=== PATIENT | female | born 1970 | race Two or more races ===

== ENCOUNTER 2023-05-28 17:12 | Emergency (ER) | payer OTHER, SELFPAY ==
--- NOTE | ~2023-05-28 | XR_ITS ---
EXAMINATION: XR CHEST CLINICAL INFORMATION: Chest tightness COMPARISON: None available. TECHNIQUE: 2 views of the chest were obtained. FINDINGS: No significant abnormality is noted involving the heart, lungs, mediastinum, bony thorax or soft tissues. XR/XR chest 2V IMPRESSION: Unremarkable examination.
--- NOTE | 2023-05-28 17:15 | ECG_ITS ---
Test Reason : CHEST PAIN Blood Pressure : / mmHG Vent. Rate : 061 BPM Atrial Rate : 061 BPM P-R Int : 140 ms QRS Dur : 088 ms QT Int : 428 ms P-R-T Axes : 044 -03 037 degrees QTc Int : 430 ms Normal sinus rhythm Normal ECG No previous ECGs available Referred By: Shayy Martinez Electronically Signed By:DEANA HURT MD
[2023-05-28 17:44] LABS: MANUAL DIFF FLAG NO
[2023-05-28 17:46] LABS: Basophils Percent Auto 0.5 % (0-2); Eosinophils Absolute Auto 0.2 X10*3/uL (0.0-0.4); Eosinophils Percent Auto 2.8 % (0-4); Hematocrit 43.3 % (37.0-47.0); Hemoglobin 13.8 g/dl (12.0-16.0); Imm Gran Abs Auto 0.02 X10*3/uL (0.00-0.03); Imm Gran Pct Auto 0.2 % (0.0-0.4); Lymphocytes Percent Auto 23.4 % (20-40); Mean Corpuscular HGB Conc 31.9 g/dl (31.0-35.0); Mean Corpuscular Hemoglobin 27.4 pg (27.0-33.0); Mean Corpuscular Volume 85.9 fL (80.0-98.0); Mean Platelet Volume 9.9 fL (9.4-12.3); Monocytes Absolute Auto 0.5 X10*3/uL (0.1-1.2); Monocytes Percent Auto 5.3 % (2-11); Neutrophils Absolute Auto 5.9 x10*3/uL (2.0-8.3); Neutrophils Percent Auto 67.8 % (45-73); Platelet Count 288 X10*3/uL (160-400); Red Blood Count 5.04 X10*6/uL (4.20-5.50); Red Cell Distribution Width 12.9 % (11.0-16.0); White Blood Count 8.7 X10*3/uL (4.8-10.8)
[2023-05-28 17:50] VITALS: BP 143/78; PULSE 63; RESP 16; TEMP 36.4; O2SAT 98; BMI 31.8
--- NOTE | 2023-05-28 17:50 | ED_ITS ---
HPI - Chest Pain General Chief Complaint: Abdominal Pain Stated Complaint: chest pain ,abd and back pain Time Seen by Provider: 05/28/23 22:28 Source: patient Mode of arrival: ambulatory Limitations: no limitations History of Present Illness HPI narrative: Patient with history of hypertension will complaining of epigastric pain since yesterday for the chest feels tight constant does get worse when she eats nausea no vomiting no shortness of breath no black stools Related Data Previous Rx's ?Medication ?Instructions ?Recorded omeprazole 40 mg capsule,delayed 40 mg PO DAILY #30 caps 05/28/23 release sucralfate 1 gram tablet 1 g PO TID #90 tabs 05/28/23 Allergies Allergy/AdvReac Type Severity Reaction Status Date / Time No Known Allergies Allergy Verified 05/28/23 17:54 Review of Systems 2 Review of Systems: Yes all other systems are reviewed and are negative [facility] Social History Social History Advance Directives: No Advance Directives Information Provided: No Physical Exam 2 Vital Signs: Vital Signs: Last Vital Signs Temp 97.9 F 05/28/23 23:21 Pulse 56 05/28/23 23:21 Resp 16 05/28/23 23:21 BP 149/75 H 05/28/23 23:21 Pulse Ox 97 05/28/23 23:21 O2 Del Method Room Air 05/28/23 23:21 BMI result Body Mass Index 31.8 Appearance: Alert. Oriented X3. No acute distress. Eyes: No pallor or icterus ENT: Pharynx normal. Oral Mucosa moist Neck: Normal inspection. Neck supple. CVS: Normal heart rate and rhythm. Pulses normal. Respiratory: No respiratory distress. Equal air entry bilateral, no wheezing/rales/rhonchi Abdomen: Soft and epigastric tenderness no rebound tenderness or guard Bowel sounds are present, no mass palpable, no CVA tenderness Skin: Skin warm and dry. Normal skin color. Normal skin turgor. Extremities: No lower extremity edema. No calf tenderness Neuro: Oriented X 3. Course Course Course Narrative: RME:?53 yo female here for eval of intermittent chest tightness and constant upper abdominal pain and back pain that began yesterday.admits pain is not exacerbated with eating. denies fevers, cough, dyspnea, palpitations, SOB, N/V, diarrhea, constipation. denies etoh consumption. labs, ekg, cxr ordered +/- other imaging per primary provider Full HPI, ROS and PE to be performed by the primary ED provider. Medications Administered Discontinued Medications Generic Name Dose Route Start Last Admin Trade Name Silvina PRN Reason Stop Dose Admin Al Hydroxide/Mg Hydroxide 30 ml 05/28/23 22:56 05/28/23 23:20 Magnesium Hydrox/Alum Hydrox 30 Ml Oral.Susp PO 05/28/23 22:57 Not Given ONCE ONE Omeprazole 40 mg 05/28/23 22:56 05/28/23 23:20 Omeprazole 40 Mg Capsule.Dr DE LA ROSA 05/28/23 22:57 Not Given ONCE ONE Medical Decision Making Medical Decision Making MDM Narrative: Patient with gastritis lab workup negative for ACS/pancreatitis will give a trial of Prilosec and Maalox advised to follow with photo manager/PCP Differential Diagnosis Differential Diagnoses: The differential diagnosis associated with the presentation includes Acute gastritis/ACS/pancreatitis Lab Data [facility] Lab Attestation statement: I reviewed the patient's lab results. 05/28/23 17:27 05/28/23 17:27 Labs: Lab Results 05/28/23 05/28/23 Range/Units 17:27 21:43 WBC 8.7 (4.8-10.8) X10*3/uL RBC 5.04 (4.20-5.50) X10*6/uL Hgb 13.8 (12.0-16.0) g/dl Hct 43.3 (37.0-47.0) % MCV 85.9 (80.0-98.0) fL MCH 27.4 (27.0-33.0) pg MCHC 31.9 (31.0-35.0) g/dl RDW 12.9 (11.0-16.0) % Plt Count 288 (160-400) X10*3/uL MPV 9.9 (9.4-12.3) fL Immature Gran % (Auto) 0.2 (0.0-0.4) % Neut % (Auto) 67.8 (45-73) % Lymph % (Auto) 23.4 (20-40) % [place] % (Auto) 5.3 (2-11) % Eos % (Auto) 2.8 (0-4) % Baso % (Auto) 0.5 (0-2) % Lymph # (Auto) 2.0 (1.2-4.9) X10*3/uL [place] # (Auto) 0.5 (0.1-1.2) X10*3/uL Eos # (Auto) 0.2 (0.0-0.4) X10*3/uL Baso # (Auto) 0.0 (0.0-0.2) X10*3/uL Abs Immat Gran (auto) 0.02 (0.00-0.03) X10*3/uL Absolute Neuts (auto) 5.9 (2.0-8.3) x10*3/uL Absolute Nucleated RBC 0.000 (0.0-0.012) X10*3/uL Nucleated RBC % (auto) 0.0 (0.0-0.2) /100WBC Sodium 140 (135-145) mmol/L Potassium 4.2 (3.3-5.1) mmol/L Chloride 102 (96-108) mmol/L Carbon Dioxide 29 (22-29) mmol/L Anion Gap 13 (12-20) BUN 13 (9-16) mg/dL Creatinine 0.67 (0.5-1.4) mg/dL Estim Creat Clear Calc 85.1 Estimated GFR > 60 Random Glucose 125 H (60-115) mg/dL Calcium 10.2 (8.4-10.2) mg/dL Magnesium 2.3 (1.6-2.6) mg/dL Total Bilirubin 0.3 (0.0-1.0) mg/dL AST 21 (5-31) U/L ALT 23 (0-31) U/L Alkaline Phosphatase 115 (39-117) U/L Troponin I High Sens < 2.7 (<3.5-17.0) ng/L Total Protein 8.6 H (6.5-8.0) g/dL Albumin 4.7 (3.5-5.0) g/dL Lipase 77 (8-78) U/L Urine Color Yellow Urine Appearance Clear Urine pH 6.0 (5.0-9.0) Ur Specific [place] 1.015 (1.005-1.025) Urine Protein Negative (Neg-Trace) mg/dL Urine Glucose (UA) Negative (Negative) mg/dL Urine Ketones Negative (Negative) mg/dL Urine Blood Negative (Negative) Urine Nitrite Negative (Negative) Ur Leukocyte Esterase Small (1+) H (Negative) Urine RBC 0-2 (0-2) /HPF Urine WBC 0-5 (0-5) /HPF Ur Squamous Epith Cells 0-2 (0-2) /HPF Urine Bacteria None Seen (None Seen) Hyaline Casts 0-2 (0-2) /LPF Independent Interpretation I performed an independent interpretation of an: EKG Interpretation: Normal sinus rhythm heart rate 61 beats per minute normal interval axis no acute ST-T changes no acute ischemia Discharge Plan Discharge Clinical Impression: Acute gastritis, Chest pain Patient Disposition: Home, Self-Care Instructions: Chest Pain (ED), Gastritis (ED) Additional Instructions: Avoid fried food Medication as prescribed Follow with PCP/photo manager for further evaluation Prescriptions: New omeprazole 40 mg capsule,delayed release(DR/EC) 40 mg PO DAILY Qty: 30 0RF sucralfate 1 gram tablet 1 g PO TID Qty: 90 0RF Interventions: ED Discharge Assessment Last Done: 05/28/23 23:21 Discharge Date/Time: 05/28/23 23:21 Print Language: Chadian
[2023-05-28 18:01] LABS: Alanine Aminotransferase 23 U/L (0-31); Albumin Level 4.7 g/dL (3.5-5.0); Alkaline Phosphatase 115 U/L (39-117); Anion Gap 13 (12-20); Aspartate Amino Transferase 21 U/L (5-31); Bilirubin Total 0.3 mg/dL (0.0-1.0); Blood Urea Nitrogen 13 mg/dL (9-16); Calcium 10.2 mg/dL (8.4-10.2); Carbon Dioxide 29 mmol/L (22-29); Chloride 102 mmol/L (96-108); Creatinine Clr Calc Pharmacy 85.1; Estimated Glomerular Filt Rate > 60; Glucose Random 125 mg/dL (60-115); Lipase 77 U/L (8-78); Magnesium 2.3 mg/dL (1.6-2.6); Potassium 4.2 mmol/L (3.3-5.1); Sodium 140 mmol/L (135-145); Total Protein 8.6 g/dL (6.5-8.0)
[2023-05-28 18:12] LABS: Troponin-I High Sensitivity < 2.7 ng/L (<3.5-17.0)
[2023-05-28 21:41] VITALS: BP 149/75; PULSE 56; RESP 16; TEMP 36.6; O2SAT 97
--- NOTE | 2023-05-28 21:44 | MHC.EDTECH ---
THIS PCT JUST ASSUMED CARE OF PATIENT ,VITALS TAKEN AND URINE SAMPLE COLLECTED AND SENT TO LAB .
[2023-05-28 21:51] LABS: Appearance Urine Clear; Color Urine Yellow; Glucose Urine UA Negative (Negative); Leukocyte Esterase Urine Small (1+) (Negative); Nitrite Urine Negative (Negative); Specific Gravity - Urine 1.015 (1.005-1.025); UMIC TRIGGER UACC YES; Urine Blood Negative (Negative); Urine Ketones Negative (Negative); Urine Protein Negative (Neg-Trace)
[2023-05-28 21:59] LABS: Bacteria Urine None Seen (None Seen); Hyaline Casts Urine 0-2 /LPF (0-2); RBC Urine 0-2 /HPF (0-2); Squamous Epithelial Cell Urine 0-2 /HPF (0-2); UACC Culture Trigger YES; WBC Urine 0-5 /HPF (0-5)
--- NOTE | 2023-05-28 23:20 | PC.NURSE ---
pt refused meds and vitals and left without paperwork. axox4. nad. resp even and unlabored.
[2023-05-28 23:21] VITALS: BP 149/75; PULSE 56; RESP 16; TEMP 36.6; O2SAT 97
== END 2023-05-28 23:21 | disposition home or self-care (01) ==
PROVIDERS: Physician Assistant Medical; Emergency Provider Internal Medicine; PCP Nurse Practitioner Family
DX: K29.70 Gastritis, unspecified, without bleeding (principal); R07.89 Other chest pain; M54.50 Low back pain, unspecified; R10.13 Epigastric pain; Z79.899 Other long term (current) drug therapy
CPT/HCPCS: 36415; 71046; 80053; 81001; 83690; 83735; 84484; 85025; 87086; 87147; 93005; 99283; 99284

== ENCOUNTER → 2023-05-28 17:15 | Outpatient (BNV) | payer OTHER, SELFPAY | PROVIDERS: Emergency Provider Internal Medicine; PCP Nurse Practitioner Family; Visit Provider Internal Medicine Cardiovascular Disease | DX: R07.9 Chest pain, unspecified (principal) | CPT/HCPCS: 93010 ==

== ENCOUNTER 2024-01-16 12:22 | Emergency (ER) | payer OTHER, SELFPAY ==
--- NOTE | ~2024-01-16 | CT_ITS ---
EXAMINATION: CT HEAD WITHOUT CONTRAST CLINICAL INFORMATION: Headache. COMPARISON: None available. TECHNIQUE: Contiguous axial imaging was performed from the skull base to vertex without intravenous administration of contrast. This CT examination was performed using dose optimization techniques as appropriate, variously including the following: *Automated exposure control *Adjustment of mA and/or kV according to patient size (this includes techniques or standardized protocols for targeted exams where dose is matched to indication/reason for exam; i.e. extremities or head) *Use of iterative reconstruction technique DLP: 611 mGy-cm FINDINGS: No acute intracranial hemorrhage. No evidence of acute/subacute cerebral or cerebellar infarction. There is no midline shift or mass effect. There is no extra-axial fluid collection. The ventricles are normal in size. The orbits are symmetric and within normal limits. The paranasal sinuses and mastoid air cells are clear. CT/CT head/brain wo IV con IMPRESSION: No acute intracranial pathology. Electronically signed by: Ted Lambert DO 01/16/2024 03:16 PM [facility]
--- NOTE | ~2024-01-16 | XR_ITS ---
EXAMINATION: XR CHEST CLINICAL INFORMATION: chest pain COMPARISON: Chest x-ray May 28, 2023 TECHNIQUE: 2 views of the chest were obtained. FINDINGS: Cardiac silhouette is normal in size. The lungs are well aerated. There is no lobar consolidation. No pleural effusion or pneumothorax. No acute osseous abnormality. XR/XR chest 2V IMPRESSION: No acute pulmonary pathology. Electronically signed by: Adelfo Gardner MD 01/16/2024 03:56 PM [facility]
--- NOTE | 2024-01-16 12:31 | ED_ITS ---
HPI - Headache General Chief Complaint: Headache Stated Complaint: migraine Time Seen by Provider: 01/16/24 12:45 Source: patient and family Mode of arrival: ambulatory Limitations: no limitations History of Present Illness ED Provider: Deirdre Avitia APRN HPI Narrative: 53 yo female with history of migraines, HTN here with complaints of generalized BUI x 2 weeks with dizziness, photophobia, phonophobia despite taking naproxen and Imitrex. Patient reports that she has had an MRI of her brain about a year ago when she initially started having headaches which was normal. She does not see a neurologist. She does feel that this is similar to her previous migraines however they do not normally last this long and resolve with naproxen and or Imitrex. She denies any associated fevers, chills, neck pain. Not affected with position changes. Also complaining of central chest achiness which is constant. Patient reports she did have COVID about a month ago and had a cough with that. About 2 weeks ago she was having some left-sided chest discomfort and was diagnosed with chest wall strain and given a prescription for naproxen. It did seem to resolve but today she started to have some central chest discomfort with no associated diaphoresis, shortness of breath. She did have 1 episode of vomiting. Chest pain is constant. It is not worsened with exertion. She currently has no cough or fever or shortness of breath. She denies any leg swelling or leg pain. No recent surgeries. No recent hospitalizations. No recent travel. No history of oral hormone or estrogen use. Related Data Previous Rx's ?Medication ?Instructions ?Recorded omeprazole 40 mg capsule,delayed 40 mg PO DAILY #30 caps 05/28/23 release sucralfate 1 gram tablet 1 g PO TID #90 tabs 05/28/23 [id number]-pmaponfchdltq-pzjqelqa 1 cap PO Q8H PRN pain #15 caps 01/16/24 50 mg-300 mg-40 mg capsule (Fioricet) Allergies Allergy/AdvReac Type Severity Reaction Status Date / Time minocycline Allergy Hives Verified 01/16/24 12:35 Sulfa (Sulfonamide Allergy Hives Verified 01/16/24 12:35 Antibiotics) Review of Systems 2 Review of Systems: Yes all other systems are reviewed and are negative Constitutional: Constitutional: Reports no additional constitutional complaints, Denies body ache(s), Denies chills, Denies fever(s), Reports headache(s) and Denies weakness Eyes: Eyes: Reports no additional eye complaints, Denies change in vision and Reports photophobia ENT: Reports system reviewed and no additional complaints, except as documented, Reports dizziness, Reports headache(s), Denies nasal congestion, Denies nasal discharge and Denies neck pain Cardiovascular: Cardiovascular: Reports no additional cardiovascular complaints, Reports chest pain, Denies leg edema and Denies dyspnea Respiratory: Respiratory: Reports no additional respiratory complaints, Denies cough and Denies dyspnea Gastrointestinal: Gastrointestinal: Reports no additional gastrointestinal complaints, Denies abdominal pain, Denies diarrhea, Reports nausea and Reports vomiting Genitourinary: Genitourinary: Reports no additional female genitourinary complaints and Denies urinary incontinence Musculoskeletal: Musculoskeletal: Reports no additional musculoskeletal complaints, Denies back pain, Denies arthralgias, Denies joint swelling, Denies neck pain, Denies numbness and Denies tingling Integumentary/Breasts: Skin/Breast: Reports system reviewed and no additional complaints, except as docu and Denies rash Neurologic: Reports system reviewed and no additional complaints, except as documented, Denies Abnormal speech present, Reports dizziness, Reports headache(s), Denies numbness, Denies tingling and Denies weakness [facility] Past Medical History Attestation statement: The following information was validated with the patient. Source: old records reviewed and nursing notes reviewed Social History Social History Advance Directives: No Advance Directives Information Provided: No Do you have a plan to hurt others: No Plan Physical Exam 2 Vital Signs: Vital Signs: Last Vital Signs Temp 98.2 F 01/16/24 12:32 Pulse 70 01/16/24 14:57 Resp 13 01/16/24 14:57 BP 119/73 01/16/24 14:57 Pulse Ox 97 01/16/24 14:57 O2 Del Method Room Air 01/16/24 14:57 BMI result Body Mass Index 29.7 Const: General: cooperative, healthy appearing, comfortable and no acute distress Orientation/consciousness: patient oriented x3 Limitations: no limitations HEENT: Head: Yes normal to inspection and No Temporal artery tenderness present Ears: hearing grossly normal bilaterally and TM's normal bilaterally General nose exam: Normal external nose present Face and sinus: Yes normal facial exam Mouth: Normal oral and palatal mucosa present Throat: Yes posterior oropharynx normal Eyes: General: appearance normal, both eyes and all related structures P upils: Equal, round and reactive pupils present Direct Ophthalmoscopy: p hotophobia Neck: Neck: Yes normal visual inspection, Yes full ROM, Yes no lymphadenopathy and Yes no meningeal signs Chest: Chest palpation & inspection: normal inspection of the chest Resp: Effort & Inspection: normal respiratory effort Auscultation: clear to auscultation bilaterally Cardio: Rate: regular rate Rhythm: regular rhythm Peripheral pulses: P eripheral pulses 2+ throughout GI: Inspection: Yes normal to inspection Palpation (GI): Soft to palpation and nontender Auscultation: normal bowel sounds Back/Spine/Pelvis: Thoracic/Lumbar Spine: thoracic and lumbar spine normal to inspection Skin: General skin exam: no rashes or lesions noted Neuro: General: patient oriented x3, moves all extremities, no meningeal signs, no focal motor deficits and normal sensation to monofilament Cranial nerves: Yes CN's II-XII intact bilaterally, Yes Equal, round and reactive pupils present, Yes Bilaterally intact EOM present, Yes Nystagmus not present, Yes Normal facial strength present and Yes Midline tongue present Cognition (Neuro): normal cognition Speech: No Abnormal speech present Gait exam (Neuro): Normal gait present Motor exam (neuro): 5/5 motor strength present throughout Sensory Exam: Normal double simultaneous stimulation for sensation Extrem: General: Yes normal to inspection, Yes no pedal edema and Yes no calf tenderness Course Course Course Narrative: This is a Rapid Medical Exam performed in triage by Neena Dumont PA-C. Full HPI, ROS and PE to be performed by primary ED provider. 53yo F presenting to the ED c/o migraine BUI x2 weeks w/assoc nausea, vomiting & lightheadedness. Saw PCP has been taking Naproxen, Imitrex & Fioricet w/o relief. Also reports chest tightness since yesterday after starting Rx meds for BUI. Admits to hx migraines but hasn't had one in months. PE: ambulating w/steady gait. no focal deficits Plan: viral testing, labs, pain control Reevaluation(s) Reevaluation #1: 1520-Ct head unremarkable. CXR normal. Labs are negative, EKG non ischemic. Patient reports continued headache although improving after reglan, benadryl, toradol and NS. Will give additional 1 L NS, PO fiorcet and re-assess. Reevaluation #2: 1700-patient is pain-free. Reviewed findings with patient. Reviewed worrisome signs and symptoms of when to return to the emergency room. Comfortable plan for discharge home Medications Administered Discontinued Medications Generic Name Dose Route Start Last Admin Trade Name Silvina PRN Reason Stop Dose Admin Acetaminophen/Butalbital/Caffeine 2 tab 01/16/24 15:05 01/16/24 15:19 Butalb/Acetamin/Caff 50/325/40 Tablet PO 01/16/24 15:06 2 tab ONCE ONE Administration Diphenhydramine HCl 25 mg 01/16/24 13:01 01/16/24 13:22 Diphenhydramine Hcl 50 Mg/Ml Vial IVPUSH 01/16/24 13:02 25 mg ONCE ONE Administration Sodium Chloride 1,000 mls @ 999 mls/hr 01/16/24 13:01 01/16/24 14:56 Ns IV 01/16/24 14:01 Infused .Q1H1M STA Infusion Sodium Chloride 1,000 mls @ 999 mls/hr 01/16/24 15:05 01/16/24 16:34 Ns IV 01/16/24 16:05 Infused .Q1H1M STA Infusion Ketorolac Tromethamine 15 mg 01/16/24 13:01 01/16/24 13:21 Ketorolac Tromethamine 15 Mg/Ml Vial IVPUSH 01/16/24 13:02 15 mg ONCE ONE Administration Metoclopramide HCl 10 mg 01/16/24 13:01 01/16/24 13:22 Metoclopramide Hcl 10 Mg/2 Ml Vial IVPUSH 01/16/24 13:02 10 mg ONCE ONE Administration Medical Decision Making Medical Decision Making MDM Narrative: 53-year-old female with history of migraines who presents with persistent generalized headache for the last 2 weeks with photophobia, phonophobia, dizziness which feels typical of her usual migraines although this is more persistent and unrelieved with Imitrex and naproxen at home. She has a normal neuro exam with no focal tenderness. No meningeal signs. No lymphadenopathy. No fever. Gradual onset. No change with position, no temporal artery tenderness. Will obtain CT head. Will give Toradol, Reglan, Benadryl and IV fluids. Also complaining of nonexertional chest pain which is not typical for ACS. Will obtain EKG, chest x-ray and troponin Differential Diagnosis Differential Diagnoses: The differential diagnosis associated with the presentation includes Migraine Low suspicion for pseudotumor cerebri, meningitis, temporal arteritis, space- occupying lesion, ICH Chest pain-ACS (less likely with negative troponin, nonischemic EKG and atypical symptoms), PE(less likely with no hypoxia, no tachypnea, no clinical findings concerning for DVT, no risk factors for same), aortic dissection-less likely with gradual onset of symptoms Admission/Observation Consideration of admission/observation: Escalation of care including admission/observation considered See course of care Lab Data MDM Lab Attestation statement: I reviewed the patient's lab results. 01/16/24 13:17 01/16/24 13:17 Labs: Lab Results 01/16/24 Range/Units 13:17 WBC 8.4 (4.8-10.8) X10*3/uL RBC 4.39 (4.20-5.50) X10*6/uL Hgb 12.3 (12.0-16.0) g/dl Hct 37.5 (37.0-47.0) % MCV 85.4 (80.0-98.0) fL MCH 28.0 (27.0-33.0) pg MCHC 32.8 (31.0-35.0) g/dl RDW 13.5 (11.0-16.0) % Plt Count 218 (160-400) X10*3/uL MPV 9.7 (9.4-12.3) fL Immature Gran % (Auto) 0.6 H (0.0-0.4) % Neut % (Auto) 85.0 H (45-73) % Lymph % (Auto) 9.7 L (20-40) % [place] % (Auto) 3.9 (2-11) % Eos % (Auto) 0.4 (0-4) % Baso % (Auto) 0.4 (0-2) % Lymph # (Auto) 0.8 L (1.2-4.9) X10*3/uL [place] # (Auto) 0.3 (0.1-1.2) X10*3/uL Eos # (Auto) 0.0 (0.0-0.4) X10*3/uL Baso # (Auto) 0.0 (0.0-0.2) X10*3/uL Abs Immat Gran (auto) 0.05 H (0.00-0.03) X10*3/uL Absolute Neuts (auto) 7.2 (2.0-8.3) x10*3/uL Absolute Nucleated RBC 0.000 (0.0-0.012) X10*3/uL Nucleated RBC % (auto) 0.0 (0.0-0.2) /100WBC Sodium 137 (135-145) mmol/L Potassium 4.3 (3.3-5.1) mmol/L Chloride 101 (96-108) mmol/L Carbon Dioxide 26 (22-29) mmol/L Anion Gap 14 (12-20) BUN 15 (9-16) mg/dL Creatinine 0.74 (0.5-1.4) mg/dL Estim Creat Clear Calc 74.4 Estimated GFR > 60 Random Glucose 141 H (60-115) mg/dL Calcium 9.7 (8.4-10.2) mg/dL Magnesium 2.0 (1.6-2.6) mg/dL Total Bilirubin 0.4 (0.0-1.0) mg/dL Direct Bilirubin 0.1 (0.0-0.5) mg/dL AST 23 (5-31) U/L ALT 25 (0-31) U/L Alkaline Phosphatase 93 (39-117) U/L Troponin I High Sens < 2.7 (<3.5-17.0) ng/L Total Protein 7.6 (6.5-8.0) g/dL Albumin 4.4 (3.5-5.0) g/dL Influenza Type A (PCR) NEGATIVE (Negative) Influenza Type B (PCR) NEGATIVE (Negative) RSV RNA Qual (PCR) NEGATIVE (Negative) SARS-CoV-2 RNA (RT-PCR) NEGATIVE (Negative) Independent Interpretation I performed an independent interpretation of an: EKG, Plain X-Ray and CT Scan Interpretation: I independently viewed the EKG which shows normal sinus rhythm with a rate of 73, normal SD, normal QRS, normal QT I independently viewed the CT scan of the chest x-ray and agree with the radiology report Radiology Impression Discussion of test interpretation with radiology: I have reviewed the radiologist's reading. Radiologist Impression: [address] [address] [address] Scan Report Signed Patient: Tiny Coello MR#: [id number] : 1970 Acct:[id number] Age/Sex: 53 / F ADM Date: 01/16/24 Loc: HO.ED Attending Dr: Ordering Physician: Deirdre Avitia NP Date of Service: 01/16/24 Procedure(s): CT head/brain wo IV con Accession Number(s): [id number] cc: KAMRAN PRYOR LEAD WEB DEVELOPER; Deirdre Avitia NP~ EXAMINATION: CT HEAD WITHOUT CONTRAST CLINICAL INFORMATION: Headache. COMPARISON: None available. TECHNIQUE: Contiguous axial imaging was performed from the skull base to vertex without intravenous administration of contrast. This CT examination was performed using dose optimization techniques as appropriate, variously including the following: *Automated exposure control *Adjustment of mA and/or kV according to patient size (this includes techniques or standardized protocols for targeted exams where dose is matched to indication/reason for exam; i.e. extremities or head) *Use of iterative reconstruction technique DLP: 611 mGy-cm FINDINGS: No acute intracranial hemorrhage. No evidence of acute/subacute cerebral or cerebellar infarction. There is no midline shift or mass effect. There is no extra-axial fluid collection. The ventricles are normal in size. The orbits are symmetric and within normal limits. The paranasal sinuses and mastoid air cells are clear. CT/CT head/brain wo IV con IMPRESSION: No acute intracranial pathology. [address] [address] XRay Report? Signed Patient: Tiny Coello MR#: [id number] : 1970 Acct:[id number] Age/Sex: 53 / F ADM Date: 01/16/24 Loc: HO.ED Attending Dr:? Ordering Physician: Deirdre Avitia NP Date of Service: 11/23/24 Procedure(s): XR chest 2V Accession Number(s): [id number] cc: KAMRAN PRYOR LEAD WEB DEVELOPER; Deirdre Avitia NP~ EXAMINATION: XR CHEST CLINICAL INFORMATION:? chest pain COMPARISON:? Chest x-ray May 28, 2023 TECHNIQUE:? 2 views of the chest were obtained. FINDINGS: Cardiac silhouette is normal in size. The lungs are well aerated. There? is no lobar consolidation. No pleural effusion or pneumothorax. No? acute osseous abnormality. XR/XR chest 2V IMPRESSION: No acute pulmonary pathology. ? Independent Historian Clinical information obtained from an independent historian. History obtained from or confirmed by: Spouse Tests considered The following testing was considered but not selected: See course of care Prescription Management I considered prescription management with: Pain Medication Discharge Plan Discharge Clinical Impression: Migraine, Chest pain Patient Disposition: Home, Self-Care Instructions: Chest Pain (ED), Migraine Headache (ED) Additional Instructions: Your blood work is re-assuring Your CT scan of your head is normal Your chest x-ray is normal Your EKG is normal Follow-up with your PCP for any continued symptoms Prescriptions: New yuphvecmvu-ssludqwcvdaja-hlnx [Fioricet] 50-300-40 mg capsule 1 cap PO Q8H PRN (Reason: pain) Qty: 15 0RF No Action omeprazole 40 mg capsule,delayed release(DR/EC) 40 mg PO DAILY Qty: 30 0RF sucralfate 1 gram tablet 1 g PO TID Qty: 90 0RF Referrals: Kamran Pryor NP [Primary Care Provider] - 1 week Print Language: Latvian
[2024-01-16 12:32] VITALS: BP 140/83; PULSE 74; RESP 18; TEMP 36.8; O2SAT 100; BMI 29.7
--- NOTE | 2024-01-16 12:35 | ECG_ITS ---
Test Reason : headache Blood Pressure : / mmHG Vent. Rate : 073 BPM Atrial Rate : 073 BPM P-R Int : 132 ms QRS Dur : 104 ms QT Int : 392 ms P-R-T Axes : 050 006 015 degrees QTc Int : 431 ms Poor data quality, interpretation may be adversely affected Normal sinus rhythm Normal ECG When compared with ECG of 28-MAY-2023 17:18, No significant change was found Referred By: Neena Dumont Electronically Signed By:DEANA HURT MD
[2024-01-16] MEDS: 0.9 % Sodium Chloride 1,000 ML 999 ML IV ×2 (13:18→15:19)
[2024-01-16 13:20] LABS: MANUAL DIFF FLAG NO
[2024-01-16] MEDS: Ketorolac Tromethamine 15 MG/ML VIAL IVPUSH (13:21)
[2024-01-16 13:22] LABS: Basophils Percent Auto 0.4 % (0-2); Eosinophils Percent Auto 0.4 % (0-4); Hematocrit 37.5 % (37.0-47.0); Hemoglobin 12.3 g/dl (12.0-16.0); Imm Gran Abs Auto 0.05 X10*3/uL (0.00-0.03); Imm Gran Pct Auto 0.6 % (0.0-0.4); Lymphocytes Absolute Auto 0.8 X10*3/uL (1.2-4.9); Lymphocytes Percent Auto 9.7 % (20-40); Mean Corpuscular HGB Conc 32.8 g/dl (31.0-35.0); Mean Corpuscular Volume 85.4 fL (80.0-98.0); Mean Platelet Volume 9.7 fL (9.4-12.3); Monocytes Absolute Auto 0.3 X10*3/uL (0.1-1.2); Monocytes Percent Auto 3.9 % (2-11); Neutrophils Absolute Auto 7.2 x10*3/uL (2.0-8.3); Platelet Count 218 X10*3/uL (160-400); Red Blood Count 4.39 X10*6/uL (4.20-5.50); Red Cell Distribution Width 13.5 % (11.0-16.0); White Blood Count 8.4 X10*3/uL (4.8-10.8)
[2024-01-16] MEDS: Metoclopramide HCl 10 MG/2 ML VIAL IVPUSH (13:22)
[2024-01-16] MEDS: diphenhydrAMINE HCL 50 MG/ML VIAL 25 MG IVPUSH (13:22)
[2024-01-16 13:35] LABS: Alanine Aminotransferase 25 U/L (0-31); Albumin Level 4.4 g/dL (3.5-5.0); Alkaline Phosphatase 93 U/L (39-117); Anion Gap 14 (12-20); Aspartate Amino Transferase 23 U/L (5-31); Bilirubin Direct 0.1 mg/dL (0.0-0.5); Bilirubin Total 0.4 mg/dL (0.0-1.0); Blood Urea Nitrogen 15 mg/dL (9-16); Calcium 9.7 mg/dL (8.4-10.2); Carbon Dioxide 26 mmol/L (22-29); Chloride 101 mmol/L (96-108); Creatinine Clr Calc Pharmacy 74.4; Estimated Glomerular Filt Rate > 60; Glucose Random 141 mg/dL (60-115); Potassium 4.3 mmol/L (3.3-5.1); Sodium 137 mmol/L (135-145); Total Protein 7.6 g/dL (6.5-8.0)
[2024-01-16 13:50] LABS: Troponin-I High Sensitivity < 2.7 ng/L (<3.5-17.0)
[2024-01-16 14:00] LABS: Influenza A PCR NEGATIVE (Negative); Influenza B PCR NEGATIVE (Negative); Resp Syncy Virus RNA Qual PCR NEGATIVE (Negative); SARS COV2 PCR INHOUSE NEGATIVE (Negative)
[2024-01-16 14:57] VITALS: BP 119/73; PULSE 70; RESP 13; O2SAT 97
[2024-01-16] MEDS: Butalb/Acetamin/Caff 50/325/40 TABLET 2 TAB PO (15:19)
[2024-01-16 17:16] VITALS: BP 122/66; PULSE 60; RESP 13; TEMP 36.7; O2SAT 99
[2024-01-16 17:25] VITALS: BP 122/66; PULSE 60; RESP 13; TEMP 36.7; O2SAT 99
--- NOTE | 2024-01-16 17:25 | PC.NURSE ---
pt states she has no pain, 0 on pain scale
== END 2024-01-16 17:48 | disposition home or self-care (01) ==
PROVIDERS: Physician Assistant; Emergency Provider Emergency Medicine; PCP Nurse Practitioner Family
DX: G43.909 Migraine, unspecified, not intractable, without status migrainosus (principal); R07.9 Chest pain, unspecified
CPT/HCPCS: 0241U; 36415; 70450; 71046; 80048; 80076; 83735; 84484; 85025; 93005; 96361; 96374; 96375; 99284; J1200; J1885; J2765

== ENCOUNTER → 2024-01-16 12:35 | Outpatient (BNV) | payer OTHER, SELFPAY | PROVIDERS: Emergency Provider Emergency Medicine; PCP Nurse Practitioner Family; Visit Provider Internal Medicine Cardiovascular Disease | DX: R51.9 Headache, unspecified (principal) | CPT/HCPCS: 93010 ==

== ENCOUNTER 2024-11-28 16:55 | Emergency (ER) | payer OTHER, SELFPAY ==
--- NOTE | ~2024-11-28 | CT_ITS ---
CLINICAL HISTORY: bilat quad. pain, rectal bleedin CT abdomen and pelvis with contrast Comparison: None provided Findings: No consolidation or effusion. Unremarkable gallbladder and solid organs. No urolithiasis. Moderate stool burden. No bowel obstruction, pneumatosis or pneumoperitoneum. Pelvic contents unremarkable. Normal appendix. No acute fracture. IMPRESSION: 1. No acute intraabdominal or pelvic pathology. This document has been electronically signed by: Brenden Tariq MD on 11/28/2024 23:27:18
[2024-11-28 17:20] VITALS: BP 153/66; PULSE 65; RESP 18; TEMP 36.6; O2SAT 98; BMI 29.0
--- NOTE | 2024-11-28 17:24 | ED.GENADULT ---
HPI - General Adult General Chief complaint: General Medical Stated complaint: bloddy stool x4 days Time Seen by Provider: 11/28/24 20:11 Source: patient Mode of arrival: ambulatory Limitations: no limitations History of Present Illness ED Provider: Dr. Radha Salmon HPI narrative: Patient comes to the emergency room complaining of 4 days of rectal bleeding. Patient states it is painless, bright red blood. Patient states it only happens when she has bowel movements. Patient denies urinary symptoms. Patient denies fever chills, denies flank pain Related Data Previous Rx's ?Medication ?Instructions ?Recorded omeprazole 40 mg capsule,delayed 40 mg PO DAILY #30 caps 05/28/23 release sucralfate 1 gram tablet 1 g PO TID #90 tabs 05/28/23 fdrglnbpzd-mklbvcukbxrxc-qnysjcmr 1 cap PO Q8H PRN pain #15 caps 01/16/24 50 mg-300 mg-40 mg capsule (Fioricet) ondansetron 4 mg disintegrating 4 mg PO Q8H PRN nausea and 01/16/24 tablet vomiting #20 tabs hydrocortisone 2.5 % topical cream 1 appl MD DAILY PRN hemorrhoids 11/29/24 with perineal applicator #30 grams (Anusol-HC) Allergies Allergy/AdvReac Type Severity Reaction Status Date / Time heparin Allergy Unknown Verified 11/28/24 17:22 minocycline Allergy Hives Verified 11/28/24 17:22 Sulfa (Sulfonamide Allergy Hives Verified 11/28/24 17:22 Antibiotics) Review of Systems Review of Systems: Constitutional : No Weight loss, No Fever, No Chills, No Night Sweats, No Fatigue, No Malaise ENT/Mouth : No Hearing loss, No Ear Pain, No Nasal Congestion, No Sinus Pain, No Hoarseness, No sore throat, No Rhinorrhea, No Swallowing Difficulty Eyes: No Eye Pain, No Swelling, No Redness, No Foreign Body, No Discharge, No Vision Changes Cardiovascular : No Chest Pain, No SOB, No Dyspnea on Exertion, No Orthopnea, No Edema, No Palpitations Respiratory : No Cough, No Sputum, No Wheezing, No Smoke Exposure, No Dyspnea Gastrointestinal : No Nausea, No Vomiting, No Diarrhea, No Constipation, No abdominal Pain, complaining of 4 days of intermittent bright red blood per rectum with bowel movements Genitourinary : no irregular bleeding, No Dysuria, No Urinary Frequency, No Hematuria, No Urinary Incontinence, No Urgency, No Flank Pain, No Urinary Flow Changes, No Hesitancy Musculoskeletal : No joint pain, No Myalgias, No Joint Swelling Skin : No Skin Lesions, No rash Neuro : No Weakness, No Numbness, No Paresthesias, No Loss of Consciousness, No Dizziness, No Headache Psych : No Anxiety/Panic, No Depression, No SI/HI/AH/VH, No Social Issues, Heme/Lymph: No Bruising, No Bleeding,No Lymphadenopathy Endocrine : No Polyuria, No Polydipsia, No Temperature Intolerance Physical Exam ED Exam Exam: Appearance: Alert. Oriented X3. No acute distress. Eyes: Pupils equal, round and reactive to light. ENT: Pharynx normal. Neck: Normal inspection. Neck supple. No lymph nodes noted. No crepitus CVS: Normal heart rate and rhythm. Pulses normal. Normal S1 and S2 Respiratory: No respiratory distress. Breath sounds normal. No Wheezing. No rales Abdomen: Soft and nontender. No rigidity. No distention. No external hemorrhoids, possible internal hemorrhoids Skin: Skin warm and dry. Normal skin color. Normal skin turgor. Extremities: No lower extremity edema. No Lacerations. No Rash Neuro: Oriented X 3. No motor deficit. No sensory deficit. Moving all extremities. No slurred speech. CN 2 through 12 grossly intact Psych: calm, cooperative, normal affect Vital Signs: Vital Signs - 24 hr 11/28/24 17:20 11/28/24 20:03 11/28/24 22:21 Temperature 98 F 98.2 F 97.9 F Pulse Rate 65 70 69 Respiratory Rate 18 14 16 Blood Pressure 153/66 H 121/70 148/80 H Pulse Oximetry 98 97 97 Oxygen Delivery Method Room Air Room Air Room Air 11/29/24 01:15 11/29/24 01:24 Temperature 97.7 F 97.7 F Pulse Rate 61 61 Respiratory Rate 14 14 Blood Pressure 124/63 124/63 Pulse Oximetry 100 100 Oxygen Delivery Method Room Air Room Air BMI result Body Mass Index 29.0 Course Course Course Narrative: RME: 54-year-old female presents to ED for will abdominal pain bowel movements with blood clots for the past 4 days. Patient was sent by primary care for re-evaluation. Vital signs are stable. Labs ordered Medications Administered Discontinued Medications Generic Name Dose Route Start Last Admin Trade Name Paragq PRN Reason Stop Dose Admin Iohexol 85 ml 11/28/24 22:32 11/28/24 22:33 Iohexol 350 Mg/Ml 100 Ml Infus..Btl IV 11/28/24 22:33 85 ml ONCE ONE Administration Medical Decision Making Medical Decision Making [facility] Narrative: I discussed the physical exam with the patient, patient likely has internal hemorrhoids. CT scan of the abdomen does not show any acute abnormality. My interpretation of labs: No significant abnormality in patient's hematology or chemistry. INR is slightly elevated 1.2, PT slightly elevated 13.3. Urinalysis negative for UTI, stool occult blood is heme negative Differential Diagnosis Differential Diagnoses: The differential diagnosis associated with the presentation includes (Internal hemorrhoids, colitis, diverticulitis) Admission/Observation Consideration of admission/observation: Escalation of care including admission/observation considered Consult Healthcare Provider Management of the patient was discussed with: Hospitalist Lab Data [facility] Lab Attestation statement: I reviewed the patient's lab results. 11/28/24 18:38 Labs: Lab Results 11/28/24 11/28/24 11/28/24 Range/Units 18:38 18:39 22:01 WBC 9.2 (4.8-10.8) X10*3/uL RBC 4.55 (4.20-5.50) X10*6/uL Hgb 12.8 (12.0-16.0) g/dl Hct 39.3 (37.0-47.0) % MCV 86.4 (80.0-98.0) fL MCH 28.1 (27.0-33.0) pg MCHC 32.6 (31.0-35.0) g/dl RDW 12.8 (11.0-16.0) % Plt Count 242 (160-400) X10*3/uL MPV 10.2 (9.4-12.3) fL Immature Gran % (Auto) 0.2 (0.0-0.4) % Neut % (Auto) 65.1 (45-73) % Lymph % (Auto) 26.7 (20-40) % [place] % (Auto) 5.3 (2-11) % Eos % (Auto) 2.3 (0-4) % Baso % (Auto) 0.4 (0-2) % Lymph # (Auto) 2.5 (1.2-4.9) X10*3/uL [place] # (Auto) 0.5 (0.1-1.2) X10*3/uL Eos # (Auto) 0.2 (0.0-0.4) X10*3/uL Baso # (Auto) 0.0 (0.0-0.2) X10*3/uL Abs Immat Gran (auto) 0.02 (0.00-0.03) X10*3/uL Absolute Neuts (auto) 6.0 (2.0-8.3) x10*3/uL Absolute Nucleated RBC 0.000 (0.0-0.012) X10*3/uL Nucleated RBC % (auto) 0.0 (0.0-0.2) /100WBC PT 13.3 H (10.9-12.4) SEC INR 1.2 H (0.9-1.1) APTT 37.4 H (26.7-34.1) SEC Beta HCG, Quant 3 mIU/mL Urine Color Yellow Urine Appearance Clear Urine pH 7.0 (5.0-9.0) Ur Specific [place] <= 1.005 (1.005-1.025) Urine Protein Negative (Neg-Trace) mg/dL Urine Glucose (UA) Negative (Negative) mg/dL Urine Ketones Negative (Negative) mg/dL Urine Blood Negative (Negative) Urine Nitrite Negative (Negative) Ur Leukocyte Esterase Trace H (Negative) Urine RBC 0-2 (0-2) /HPF Urine WBC 0-5 (0-5) /HPF Ur Squamous Epith Cells 0-2 (0-2) /HPF Urine Bacteria None Seen (None Seen) Hyaline Casts 0-2 (0-2) /LPF Stool Occult Blood NEGATIVE (NEGATIVE) Independent Interpretation I performed an independent interpretation of an: CT Scan Interpretation: No consolidation or effusion. Unremarkable gallbladder and solid organs. No urolithiasis. Moderate stool burden. No bowel obstruction, pneumatosis or pneumoperitoneum. Pelvic contents unremarkable. Normal appendix. No acute fracture. IMPRESSION: 1. No acute intraabdominal or pelvic pathology Critical Care Time Critical Care Time Critical Care Time: Yes Total Critical Care Time: 35 Attestation: I have personally provided critical care time. Time includes review of lab data, radiology results, discussion with consultants, and monitoring for potential decompensation. Intervention performed as documented. Discharge Plan Discharge Clinical Impression: Internal hemorrhoid Patient Disposition: Home, Self-Care Instructions: Hemorrhoids (ED) Additional Instructions: Please follow-up with your primary care physician tomorrow. If you have any worsening or new symptoms, please return to the emergency room or call 911 Prescriptions: New hydrocortisone [Anusol-HC] 2.5 % cream with perineal applicator 1 appl MD DAILY PRN (Reason: hemorrhoids) Qty: 30 0RF No Action [id number]-oofnnmqkikxsu-[id number] [Fioricet] 50-300-40 mg capsule 1 cap PO Q8H PRN (Reason: pain) Qty: 15 0RF ondansetron 4 mg tablet,disintegrating 4 mg PO Q8H PRN (Reason: nausea and vomiting) Qty: 20 0RF omeprazole 40 mg capsule,delayed release(DR/EC) 40 mg PO DAILY Qty: 30 0RF sucralfate 1 gram tablet 1 g PO TID Qty: 90 0RF Referrals: Syed Ding MD [Physician, General Surgery] Stand Alone Forms: Work/School Release Interventions: ED Discharge Assessment Last Done: 11/29/24 01:24 Discharge Date/Time: 11/29/24 01:30 Print Language: Portuguese
[2024-11-28 19:08] LABS: MANUAL DIFF FLAG NO
[2024-11-28 19:10] LABS: Hematocrit 39.3 % (37.0-47.0); Hemoglobin 12.8 g/dl (12.0-16.0); Imm Gran Abs Auto 0.02 X10*3/uL (0.00-0.03); Imm Gran Pct Auto 0.2 % (0.0-0.4); Lymphocytes Absolute Auto 2.5 X10*3/uL (1.2-4.9); Mean Corpuscular HGB Conc 32.6 g/dl (31.0-35.0); Mean Corpuscular Hemoglobin 28.1 pg (27.0-33.0); Mean Corpuscular Volume 86.4 fL (80.0-98.0); NRBC Abs Auto 0.000 X10*3/uL (0.0-0.012); NRBC Pct Auto 0.0 /100WBC (0.0-0.2); Platelet Count 242 X10*3/uL (160-400); Red Blood Count 4.55 X10*6/uL (4.20-5.50); White Blood Count 9.2 X10*3/uL (4.8-10.8)
[2024-11-28 19:11] LABS: Appearance Urine Clear; Glucose Urine UA Negative (Negative); PH 7.0 (5.0-9.0); Specific Gravity - Urine <= 1.005 (1.005-1.025); UMIC TRIGGER UACC YES
[2024-11-28 19:20] LABS: INTERNATIONAL NORM RATIO 1.2 (0.9-1.1); Prothrombin Time 13.3 SEC (10.9-12.4)
[2024-11-28 19:23] LABS: Partial Thromboplastin Time 37.4 SEC (26.7-34.1)
--- OUTSIDE RECORDS SUMMARY | 2024-11-28 19:54 | XMS_ITS | Clinical Summary ---
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 30 tablet 09/14/2024 Active atorvastatin calcium (ATORVASTATIN ORAL) Take by mouth. Active vitamin D3-folic acid 2,500 unit- 1 mg tablet Take by mouth 1 (one) time each day. Active Hospital, Clinic, or Other Facility Administered Medication Ordered Dose Route Frequency Start Date End Date Status perflutren lipid microsphere (DEFINITY) 1.3 mL in sodium chloride 0.9% 8.7 mL injection 10 mL IV Once in imaging 11/15/2024 11/15/2024 End ed Active Problems Problem Noted Date Diagnosed Date Elevated troponin 10/28/2024 Resolved Problems Problem Noted Date Diagnosed Date Resolved Date NSTEMI (non-ST elevated myoc ardial infarction) (CMS/HCC V24, CMS/HCC V28) 09/12/2024 0 09/12/2024 Encounters Date Type Department Care Team Description 11/15/2024 8:30 AM EDT Ancillary Procedure [facility] [address] [place] [address] NSTEMI (non-ST elevated myocardial infarction) ([facility] V24, CMS/[facility] V28); Chest pain, unspecified type 10/31/2024 8:10 AM EDT Office Visit [facility] [address] [place] [address] Ada Tompkins NP Elevated troponin (Primary Dx); NSTEMI (non-ST elevated myocardial infarction) (CMS/HCC V24, CMS/HCC V28); Chest pain, unspecified type; Hyperlipidemia, unspecified hyperlipidemia type; ALISA (obstructive sleep apnea) 10/11/2024 1:30 PM EDT Ancillary Procedure [facility] - [address] [place] [address] NSTEMI (non-ST elevated myocardial infarction) ([facility] V24, CMS/[facility] V28) 09/20/[address] [facility] [address] [facility] [address] [place] [address] Alexx Ruggiero MD 09/14/2024 7:29 AM EDT - 09/14/2024 9:44 AM EDT Emergency [facility] Emergency [address] [place] [address] Yasmine Campos MD Rash and other nonspecific skin eruption (Primary Dx); Adverse effect of drug, initial encounter Discharge Disposition: Home or Self Care 09/14/[address] [facility] [address] [facility] [address] [place] [address] Vinod Cisneros MD 09/13/[address] [facility] [address] [place] [address] Vinod Cisneros MD 09/11/2024 8:40 PM EDT - 09/12/2024 11:49 AM EDT Hospital Encounter [facility]mediate Care Unit [address] [place] [address] Yasmine Campos MD Bukalo, Nermina, MD Seralathan, Manikandan, MD NSTEMI (non-ST elevated myocardial infarction) ([facility] V24, [facility] V28) (Primary Dx); Left-sided chest pain Discharge Disposition: Home or Self Care from Last 3 Months Surgical History Surgery Date Site/Laterality Comments TUBAL LIGATION BELT ABDOMINOPLASTY CYST REMOVAL Right R wrist ganglion cyst HYSTERECTOMY Medical History Medical History Date Comments Hypertension Hyperlipidemia diet controlled NSTEMI (non-ST elevated myoc ardial infarction) ([facility] V24, [facility] V28) Obstructive sleep apnea Prediabetes Recurrent UTI Dyspepsia Family History Medical History Relation Name Comments Dementia Father Diabetes Father Heart attack Father Heart disease Father Heart disease Mother Relation Name Status Comments Father Mother Social History Tobacco Use Types Packs/Day Years Used Date Smoking Tobacco: Never Tobacco Cessation:Counseling Given: Not Answered Alcohol Use Standard Drinks/Week Comments Never 0 (1 standard drink = 0.6 oz pur e alcohol) Comments Unknown Sex and Gender Information Value Date Recorded Sex Assigned at Not on file Legal Sex Female 5:44 AM EST Gender Identity Not on file Sexual Orientation Not on file Obstetrics History Last Filed Vital Signs Vital Sign Reading Time Taken Comments Blood Pressure 132/78 10/31/2024 8:16 AM EDT Pulse 61 10/31/2024 8:16 AM EDT Temperature 36.7 C (98.1 F) 09/14/2024 5:41 AM EDT Respiratory Rate 18 09/14/2024 5:41 AM EDT Oxygen Saturation 99% 10/31/2024 8:16 AM EDT Inhaled Oxygen Concentration - - Weight 69.9 kg (154 lb) 10/31/2024 8:16 AM EDT Height 152.4 cm (5') 10/31/2024 8:16 AM EDT Body Mass Index 30.08 10/31/2024 8:16 AM EDT Plan of Treatment Health Maintenance Due Date Last Done Comments Breast Cancer Screening 1968 Colorectal Cancer Screening: Colonoscopy 1968 Hepatitis B Vaccines (1 of 3 - 19+ 3-dose series) 1987 Cervical Cancer Screening: Pap Smear 1989 Pneumococcal Vaccine: 50+ Years (1 of 1 - PCV) 2018 Zoster Vaccines (1 of 2) 2018 Depression Screening 02/24/2024 HIV Screening 09/11/2024 Hepatitis C Screening 09/11/2024 Social Influencers of Health Screening 09/11/2024 COVID-19 Vaccine (3 - season) 2024 04/02/2020, 03/05/2020 Influenza Vaccine (#1) 2024 9, 12/11/2017, 11/13/2016, Additional history exists Hypertension/CHF/CAD Annual BMP Blood Test 09/14/2025 09/14/2024, 09/12/2024, 09/11/2024 Cholesterol Screening (Lipid Panel) 09/11/2029 09/11/2024 DTaP,Tdap,and Td Vaccines (4 - Td or Tdap) 10/16/2032 10/16/2022, 10/21/2012, 08/04/2005 RSV Immunization Adult Patients (1 - 1-dose 75+ series) 2043 HIB Vaccines Aged Out No longer eligi ble based on patient's age to complete this topic HPV Vaccines Aged Out No longer eligi ble based on patient's age to complete this topic Hepatitis A Vaccines Aged Out No long er eligible based on patient's age to complete this topic IPV Vaccines Aged Out No longer eligi ble based on patient's age to complete this topic MMR Vaccines Aged Out No longer eligi ble based on patient's age to complete this topic Meningococcal ACWY Vaccine Aged Out N o longer eligible based on patient's age to complete this topic Meningococcal B Vaccine Aged Out No l onger eligible based on patient's age to complete this topic RSV Immunization Patients Under 20 months Aged Out No longer eligible based on patient's age to complete this topic Varicella Vaccines Aged Out No longer eligible based on patient's age to complete this topic Procedures Procedure Name Priority Date/Time Associated Diagnosis Comments STRESS ECHOCARDIOGRAM EXERCISE WITH CONTRAST Routine 11/15/2024 8:47 AM EDT NSTEMI (non-ST elevated myocardial infarction) (CMS/HCC V24, CMS/HCC V28) Chest pain, unspecified type Procedure Note - Alexx Ruggiero MD / Jo-Ann Ambrose PA - 11/15/2024 8:47 AM EDTThis note is in progress. Stress ECG was normal. Exercise stress test was performed. Patient reported no symptoms duringthe stress test. Exercise capacity was average. Normal blood pressureresponse. Stress: The patient reported no symptoms during the stress test. ECG: The result of the stress ECG was negative for ischemia. Findings Study Details Overall the study quality was adequate. Definity contrast was given to enhance imaging. Stress Findings A Joby protocol stress test was performed. Overall, the patient's exercise capacity was average. Total stress time was 7 min and 37 sec. The patient experienced no angina during the test. The test was stopped because the patient experienced fatigue. The Machado Treadmill Score is 8. The patient's hemodynamic response was adequate for diagnosis. Blood pressure demonstrated a normal response. Heart rate demonstrated a normal response. The patient reported no symptoms during the stress test. ECG 54 yo female with history of hypertension, hyperlipidemia with recent NSTEMI and atypical chest pain. The ECG shows normal sinus rhythm. There were no arrhythmias during stress. There is no ST segment changes during stress. There were no arrhythmias during recovery. The result of the stress ECG was negative for ischemia. TRANSTHORACIC ECHOCARDIOGRAM (TTE) COMPLETE W/ CONTRAST Routine 10/11/2024 2:35 PM EDT NSTEMI (non-ST elevated myocardial infarction) (CMS/HCC V24, CMS/HCC V28) EXTERNAL ECHO Routine 09/17/2024 1:51 PM EDT CBC WITH AUTO DIFFERENTIAL STAT 09/14/2024 8:19 AM EDT COMPREHENSIVE METABOLIC PANEL STAT 09/14/2024 8:19 AM EDT CBC AND DIFFERENTIAL STAT 09/14/2024 8:19 AM EDT ECG ANNOTATED 09/13/2024 HEPARIN AND LOW MOLECULAR WEIGHT ANTI XA LEVEL Timed 09/12/2024 10:07 AM EDT MAGNESIUM Routine 09/12/2024 5:36 AM EDT COMPLETE BLOOD COUNT Routine 09/12/2024 5:36 AM EDT BASIC METABOLIC PANEL Routine 09/12/2024 5:36 AM EDT TROPONIN I HIGH SENSITIVITY STAT 09/12/2024 5:36 AM EDT TROPONIN I HIGH SENSITIVITY STAT 09/12/2024 4:21 AM EDT HEPARIN AND LOW MOLECULAR WEIGHT ANTI XA LEVEL STAT 09/12/2024 4:21 AM EDT ACTIVATED PARTIAL THROMBOPLASTIN TIME STAT 09/12/2024 4:21 AM EDT TROPONIN I HIGH SENSITIVITY STAT 09/12/2024 2:43 AM EDT WAYNE URINE CULTURE TUBE STAT 09/11/2024 11:04 PM EDT URINALYSIS WITH REFLEX MICROSCOPIC AND CULTURE STAT 09/11/2024 11:04 PM EDT URINALYSIS WITH REFLEX MICROSCOPIC AND CULTURE STAT 09/11/2024 11:04 PM EDT CULTURE URINE STAT 09/11/2024 11:[address] ABDOMEN PELVIS WO CONTRAST STAT 09/11/2024 10:48 PM EDT XR CHEST 2 VIEWS STAT 09/11/2024 10:19 PM EDT LIPID PANEL WITH REFLEX TO DIRECT LDL Add-On 09/11/2024 9:12 PM EDT CREATINE KINASE AND CKMB Add-On 09/11/2024 9:12 PM EDT PROTHROMBIN TIME WITH INR STAT Add-on 09/11/2024 9:12 PM EDT CBC WITH AUTO DIFFERENTIAL STAT 09/11/2024 9:12 PM EDT D-DIMER STAT 09/11/2024 9:12 PM EDT TROPONIN I HIGH SENSITIVITY STAT 09/11/2024 9:12 PM EDT CBC AND DIFFERENTIAL STAT 09/11/2024 9:12 PM EDT BASIC METABOLIC PANEL STAT 09/11/2024 9:12 PM EDT ECG 12-LEAD STAT 09/11/2024 8:47 PM EDT from Last 3 Months Results * TRANSTHORACIC ECHOCARDIOGRAM (TTE) COMPLETE W/ CONTRAST (10/11/2024 2:35 PM EDT) BSA 1.71 m2 CV PACS Left Atrium Minor Shaw 4.7 cm CV PACS Left Atrium Major Shaw 4.6 cm CV PACS LA Area Sys (A2C) 20 cm2 CV PACS LA Area Sys (A4C) 15 cm2 CV PACS LA Volume (BP) 50 mL CV PACS RA Area 15.7 cm2 CV PACS RA 2D Volume 42 mL CV PACS AV Regurgitation PHT 995 ms CV PACS AR Max Velocity 4.9 m/s CV PACS AV Regurgitant Volume 97 mmHg CV PACS AV Peak Smooth 1.4 m/s CV PACS AV Peak Gradient 8 mmHg CV PACS AV Mean Gradient 4 mmHg CV PACS AV Mean Gradient 4 mmHg CV PACS AV Mean Gradient 4 mmHg CV PACS AV Mean Gradient 4 mmHg CV PACS Ao VTI 34.4 cm CV PACS AV Area Continuity Equation 1.4 cm2 CV PACS AV Area Peak Velocity 1.4 cm2 CV PACS Aortic Sinus Valsalva 2.6 cm CV PACS Ascending Aorta 3.5 cm CV PACS IVSD 0.7 0.6 - 0.9 cm CV PACS LVIDD 4.3 3.8 - 5.2 cm CV PACS LVIDS 3.0 2.2 - 3.5 cm CV PACS LVOT Diameter 1.6 cm CV PACS LVOT Mean Smooth 0.6 m/s CV PACS LVOT Mean Grad 2 mmHg CV PACS LVOT Mean Grad 2 mmHg CV PACS LVOT Peak VTI 24.8 cm CV PACS LVOT Peak Smooth 1.0 m/s CV PACS LVOT Peak Gradient 4 mmHg CV PACS LVPWD 0.8 0.6 - 0.9 cm CV PACS MV E' Tissue Velocity Lateral 9 cm/s CV PACS MV E' Tissue Velocity Septal 5 cm/s CV PACS LVOT Area 2.0 cm2 CV PACS LVOT Stroke Volume 50 mL CV PACS MV Deceleration Arroyo 3.7 m/s2 CV PACS E Wave Deceleration Time 166 119 - 242 ms CV PACS MV PHT 49 ms CV PACS MV Peak A Smooth 0.78 m/s CV PACS MV Peak E Smooth 0.61 m/s CV PACS MV Mean Gradient 1 mmHg CV PACS MV Mean Gradient 1 mmHg CV PACS MV VTI 22.8 cm CV PACS Mitral Valve Max Velocity 0.7 m/s CV PACS MV Peak Gradient 2 mmHg CV PACS MV Area PHT 4.5 cm2 CV PACS MV Area Continuity Equation 2.2 cm2 CV PACS PV Acceleration Time 180 ms CV PACS PV Acceleration Time 173 ms CV PACS PV Acceleration Time 177 ms CV PACS RV Diastolic Basal Dimension 3.6 2.5 - 4.1 cm CV PACS RV S' 10 cm/s CV PACS TAPSE 25 mm CV PACS TR Peak Velocity 2.02 m/s CV PACS TR Peak Gradient 16 mmHg CV PACS E/E' Ratio Septal 12 CV PACS E/E' Ratio Averaged 9 CV PACS LVOT Stroke Index 30 mL/m2 CV PACS Relative Wall Thickness ratio 0.37 CV PACS LVOT:AV VTI Index 0.72 CV PACS FS 30 % CV PACS LV Mass 2D 97 g CV PACS Ascending Aorta Index 2.11 cm/m2 CV PACS MV VTI:LVOT VTI ratio 0.9 CV PACS LVOT flow 121 mL/s CV PACS RA 2D Volume Index 25 mL/m2 CV PACS YVETTE Index (VTI) 0.87 cm2/m2 CV PACS YVETTE Index (Pk Smooth) 0.84 cm2/m2 CV PACS LVIDD Index 2.59 cm/m2 CV PACS LVIDS Index 1.81 cm/m2 CV PACS AV Velocity Ratio 0.71 CV PACS E/A Ratio 0.8 CV PACS E/E' Ratio Lateral 7 CV PACS LA Volume Index (BP) 30 mL/m2 CV PACS LV Mass Index 2D 58 g/m2 CV PACS Right Ventricular Peak Systolic Pressure 19 mmHg CV PACS Est. RA Pressure 3 mmHg CV PACS Anatomical Region Laterality Modality Ultrasound Narrative 10/21/2024 5:46 PM EDT Left ventricle cavity size is normal. Wall thickness is normal. Systolic function is normal with an ejection fraction of 55-60%. There are no regional LV wall motion abnormalities. Right ventricle cavity is normal. Right ventricular systolic function is normal. Mild aortic valve regurgitation. The right ventricular systolic pressure is normal. Left Ventricle Left ventricle cavity size is normal. Wall thickness is normal. Systolic function is normal with an ejection fraction of 55-60%. There are no regional LV wall motion abnormalities. There is no diastolic dysfunction. Right Ventricle Right ventricle cavity appears normal. Systolic function is normal. Left Atrium Left atrium cavity size is normal. Right Atrium Right atrium cavity is normal. IVC/SVC Inferior vena cava structure is normal. RA pressures is estimated to be 3 mmHg (IVC diameter <21 mm and decreases >50% during inspiration). Mitral Valve Mitral valve structure is normal. There is trace regurgitation. There is no evidence of mitral valve stenosis. Tricuspid Valve Tricuspid valve structure is normal. There is trace regurgitation. There is no evidence of tricuspid valve stenosis. The right ventricular systolic pressure is normal. The RVSP is estimated at 19 mmHg. Aortic Valve The aortic valve is trileaflet. There is mild regurgitation. There is no evidence of aortic valve stenosis. Pulmonic Valve Visualized portions of the pulmonic valve appear normal. No significant pulmonic valve regurgitation. There is no evidence of pulmonic valve stenosis. Ascending Aorta The aorta appears normal in size. Pericardium Pericardium appears normal. There is no pericardial effusion. Study Details Overall the study quality was adequate. Definity contrast was given to enhance imaging. Study was difficult due to: poor endocardial visualization. us Archie Carvalho MD CV ECHO PROCEDURES Bebe l Result * External Echo (09/17/2024 1:51 PM EDT) Anatomical Region Laterality Modality Ultrasound us Historical Provider CV ECHO PROCEDURES Final Result * (ABNORMAL) CBC auto differential (09/14/2024 8:19 AM EDT) Only the most recent of2 resultswithin the time period is included. WBC 6.9 4.8 - 10.8 K/mcL LAB HEMETOLOGY METHOD 09/14/2024 8:[address] [facility] RBC 4.80 3.80 - 4.80 M/mcL LAB [facility] Hemoglobin 13.3 11.5 - 16.0 g/dL LAB HEMETOLOGY METHOD 09/14/2024 8:[address] [facility] Hematocrit 42.4 35.0 - 47.0 % LAB HEMETOLOGY METHOD 09/14/2024 8:[address] [facility] MCV 88.5 79.0 - 98.0 FL LAB HEMETOLOGY METHOD 09/14/2024 8:[address] [facility] MCH 27.8 27.0 - 32.0 pcg LAB HEMETOLOGY METHOD 09/14/2024 8:[address] [facility] MCHC 31.4(L) 32.0 - 37.0 g/dL LAB HEMETOLOGY METHOD 09/14/2024 8:[address] [facility] RDW 12.8 11.0 - 15.0 % LAB HEMETOLOGY METHOD 09/14/2024 8:[address] [facility] Platelets 260 130 - 400 K/mcL LAB HEMETOLOGY METHOD 09/14/2024 8:[address] [facility] MPV 10.0 7.0 - 11.0 FL LAB HEMETOLOGY METHOD 09/14/2024 8:[address] [facility] NRBC 0.0 <1.0 % LAB HEMETOLOGY METHOD 09/14/2024 8:[address] [facility] NRBC Absolute 0.00 <0.10 K/mcL LAB HEMETOLOGY METHOD 09/14/2024 8:[address] [facility] Neutrophils Relative 66.9 % LAB HEMETOLOGY METHOD 09/14/2024 8:[address] [facility] Lymphocytes Relative 25.1 % LAB HEMETOLOGY METHOD 09/14/2024 8:[address] [facility] Monocytes Relative 5.0 % LAB HEMETOLOGY METHOD 09/14/2024 8:[address] [facility] Eosinophils Relative 2.3 % LAB HEMETOLOGY METHOD 09/14/2024 8:[address] [facility] Basophils Relative 0.6 % LAB HEMETOLOGY METHOD 09/14/2024 8:[address] [facility] Immature Granulocytes Relative 0.1 % LAB HEMETOLOGY METHOD 09/14/2024 8:[address] [facility] Neutrophils Absolute 4.59 1.50 - 7.00 K/mcL LAB HEMETOLOGY METHOD 09/14/2024 8:[address] [facility] Lymphocytes Absolute 1.72 1.00 - 5.00 K/mcL LAB HEMETOLOGY METHOD 09/14/2024 8:[address] [facility] Monocytes Absolute 0.34 0.20 - 1.00 K/mcL LAB HEMETOLOGY METHOD 09/14/2024 8:[address] [facility] Eosinophils Absolute 0.16 0.00 - 0.50 K/mcL LAB HEMETOLOGY METHOD 09/14/2024 8:[address] [facility] Basophils Absolute 0.04 0.00 - 0.20 K/mcL LAB HEMETOLOGY METHOD 09/14/2024 8:[address] [facility] Immature Granulocytes Absolute 0.01 0.00 - 0.03 K/mcL LAB HEMETOLOGY METHOD 09/14/2024 8:[address] [facility] Blood Venous blood specimen / Unknown Venipuncture / Unknown 09/14/2024 8:19 AM EDT 09/14/2024 8:33 AM EDT Brannon DAMON LAB BLOOD ORDERABLES Final Result [facility] [address] [place] [address], * Comprehensive Metabolic Panel (CMP) (09/14/2024 8:19 AM EDT) Sodium 140 133 - 145 mmol/L LAB CHEMISTRY METHOD 09/14/2024 9:[address] [facility] Potassium 4.0 3.5 - 5.5 mmol/L LAB CHEMISTRY METHOD 09/14/2024 9:[address] [facility] Chloride 107 96 - 110 mmol/L LAB CHEMISTRY METHOD 09/14/2024 9:[address] [facility] CO2 27 21 - 32 mmol/L LAB CHEMISTRY METHOD 09/14/2024 9:[address] [facility] Anion Gap 6 3 - 11 LAB CHEMISTRY METHOD 09/14/2024 9:[address] [facility] Glucose 83 70 - 100 mg/dL LAB CHEMISTRY METHOD 09/14/2024 9:[address] [facility] BUN 21 5 - 25 mg/dL LAB CHEMISTRY METHOD 09/14/2024 9:[address] [facility] Creatinine 0.74 0.50 - 1.10 mg/dL LAB CHEMISTRY METHOD 09/14/2024 9:[address] [facility] eGFR 95 >=60 mL/min/1. 73m2 LAB CHEMISTRY METHOD 09/14/2024 9:[address] [facility] Comment:Calculation based on the Chronic Kidney Disease Epidemiology Collaboration (CKD-EPI) equation refit without adjustment for race. BUN/Creatinine Ratio 28.4 LAB CHEMISTRY METHOD 09/14/2024 9:[address] [facility] Calcium 9.7 8.5 - 10.5 mg/dL LAB CHEMISTRY METHOD 09/14/2024 9:[address] [facility] AST (SGOT) 19 10 - 42 unit/L LAB CHEMISTRY METHOD 09/14/2024 9:[address] [facility] ALT (SGPT) 32 10 - 60 unit/L LAB CHEMISTRY METHOD 09/14/2024 9:[address] [facility] Alkaline Phosphatase 99 42 - 121 unit/L LAB CHEMISTRY METHOD 09/14/2024 9:[address] [facility] Total Protein 8.0 6.0 - 8.0 g/dL LAB CHEMISTRY METHOD 09/14/2024 9:[address] [facility] Albumin 4.5 3.2 - 5.0 g/dL LAB CHEMISTRY METHOD 09/14/2024 9:[address] [facility] Total Bilirubin 0.4 0.0 - 1.4 mg/dL LAB CHEMISTRY METHOD 09/14/2024 9:[address] [facility] Blood Venous blood specimen / Unknown Venipuncture / Unknown 09/14/2024 8:19 AM EDT 09/14/2024 8:33 AM EDT us Brannon DAMON LAB BLOOD ORDERABLES Final Result [facility] [address] [place] [address], * ECG-Annotated (09/13/2024) us Provider Onbase MD ECG ORDERABLES Final Result * (ABNORMAL) Anti-Xa - Every 6 Hours (09/12/2024 10:07 AM EDT) Only the most recent of2 resultswithin the time period is included. [facility] Heparin Anti-Xa 0.91(H) 0.30 - 0.70 I Unit/mL LAB COAGULATION METHOD 09/12/2024 10:22 AM EDT [facility] Blood Venous blood specimen / Unknown Venipuncture / Unknown 09/12/2024 10:07 AM EDT 09/12/2024 10:12 AM EDT Narrative [facility] - 09/12/2024 10:22 AM EDT Therapeutic range listed is for Unfractionated Heparin. LMW Heparin therapeutic range: 0.50-1.20 IU/mL us Chalo Manzano MD LAB BLOOD ORDERABLES Final Res ult [facility] [address] [place] [address], [place] [phone] * (ABNORMAL) Troponin I high sensitivity (09/12/2024 5:36 AM EDT) Only the most recent of4 resultswithin the time period is included. [facility] High Sensitivity Troponin I 130(HH) <=54 ng/L LAB CHEMISTRY METHOD 09/12/2024 6:12 AM EDT [facility] Blood Venous blood specimen / Unknown Venipuncture / Unknown 09/12/2024 5:36 AM EDT 09/12/2024 5:39 AM EDT Narrative [facility] - 09/12/2024 6:12 AM EDT High levels of biotin in samples may falsely decrease hsTroponin values. Use caution when interpreting hsTroponin results in patients taking biotin who exhibit renal impairment (eGFR <60) or in patients taking more than 20 mg/day of biotin. us Chalo Manzano MD LAB BLOOD ORDERABLES Final Res ult [facility] [address] [place] [address], * (ABNORMAL) Complete blood count (09/12/2024 5:36 AM EDT) WBC 7.7 4.8 - 10.8 K/mcL LAB HEMETOLOGY METHOD 09/12/2024 5:52 AM EDT [facility] RBC 4.20 3.80 - 4.80 M/mcL LAB HEMETOLOGY METHOD 09/12/2024 5:52 AM EDT [facility] Hemoglobin 11.7 11.5 - 16.0 g/dL LAB HEMETOLOGY METHOD 09/12/2024 5:52 AM EDT [facility] Hematocrit 37.2 35.0 - 47.0 % LAB HEMETOLOGY METHOD 09/12/2024 5:52 AM EDT [facility] MCV 88.4 79.0 - 98.0 FL LAB HEMETOLOGY METHOD 09/12/2024 5:52 AM EDT [facility] MCH 27.8 27.0 - 32.0 pcg LAB HEMETOLOGY METHOD [facility] MCHC 31.5(L) 32.0 - 37.0 g/dL LAB HEMETOLOGY METHOD 09/12/2024 5:52 AM EDT [facility] RDW 12.8 11.0 - 15.0 % LAB HEMETOLOGY METHOD 09/12/2024 5:52 AM EDT [facility] Platelets 228 130 - 400 K/mcL LAB HEMETOLOGY METHOD 09/12/2024 5:52 AM EDT [facility] MPV 9.8 7.0 - 11.0 FL LAB HEMETOLOGY METHOD 09/12/2024 5:52 AM EDT [facility] NRBC 0.0 <1.0 % LAB HEMETOLOGY METHOD 09/12/2024 5:52 AM EDT [facility] NRBC Absolute 0.00 <0.10 K/mcL LAB HEMETOLOGY METHOD 09/12/2024 5:52 AM EDT [facility] Blood Venous blood specimen / Unknown Venipuncture / Unknown 09/12/2024 5:36 AM EDT 09/12/2024 5:39 AM EDT us Chalo Manzano MD LAB BLOOD ORDERABLES Final Res ult [facility] [address] [place] [address], [place] [phone] * Magnesium (09/12/2024 5:36 AM EDT) Magnesium 2.0 1.9 - 2.6 mg/dL LAB CHEMISTRY METHOD 09/12/2024 6:47 AM EDT [facility] Blood Venous blood specimen / Unknown Venipuncture / Unknown 09/12/2024 5:36 AM EDT 09/12/2024 5:39 AM EDT us Essie DAMON LAB BLOOD ORDERABLES Final R esult [facility] [address] [place] [address], [place] [phone] * (ABNORMAL) Basic metabolic panel (09/12/2024 5:36 AM EDT) Only the most recent of2 resultswithin the time period is included. Sodium 140 133 - 145 mmol/L LAB CHEMISTRY METHOD 09/12/2024 6:47 AM EDT [facility] Potassium 3.7 3.5 - 5.5 mmol/L LAB CHEMISTRY METHOD 09/12/2024 6:[address] [facility] Chloride 107 96 - 110 mmol/L LAB CHEMISTRY METHOD 09/12/2024 6:[address] [facility] CO2 29 21 - 32 mmol/L LAB CHEMISTRY METHOD 09/12/2024 6:[address] [facility] Anion Gap 4 3 - 11 LAB CHEMISTRY METHOD 09/12/2024 6:[address] [facility] Glucose 107(H) 70 - 100 mg/dL LAB CHEMISTRY METHOD 09/12/2024 6:[address] [facility] BUN 18 5 - 25 mg/dL LAB CHEMISTRY METHOD 09/12/2024 6:[address] [facility] Creatinine 0.68 0.50 - 1.10 mg/dL LAB CHEMISTRY METHOD 09/12/2024 6:[address] [facility] eGFR 102 >=60 mL/min/1. 73m2 LAB CHEMISTRY METHOD 09/12/2024 6:[address] [facility] Comment:Calculation based on the Chronic Kidney Disease Epidemiology Collaboration (CKD-EPI) equation refit without adjustment for race. BUN/Creatinine Ratio 26.5 LAB CHEMISTRY METHOD 09/12/2024 6:[address] [facility] Calcium 9.2 8.5 - 10.5 mg/dL LAB CHEMISTRY METHOD 09/12/2024 6:[address] [facility] Blood Venous blood specimen / Unknown Venipuncture / Unknown 09/12/2024 5:36 AM EDT 09/12/2024 5:39 AM EDT us Chalo Manzano MD LAB BLOOD ORDERABLES Final Res ult [facility] [address] [place] [address], [place] [phone] * Activated Partial Thromboplastin Time - STAT (09/12/2024 4:21 AM EDT) [facility] aPTT 38.8 24.1 - 39.3 sec LAB COAGULATION METHOD 09/12/2024 4:[address] [facility] Blood Venous blood specimen / Unknown Venipuncture / Unknown 09/12/2024 4:21 AM EDT 09/12/2024 4:28 AM EDT us Yasmine Campos MD LAB BLOOD ORDERABLES Final Res ult [facility] [address] [place] [address], [place] [phone] * (ABNORMAL) Urinalysis with reflex microscopic and culture (09/11/2024 11:04 PM EDT) [facility] Specific Reynolds Urine 1.015 1.003 - 1.030 LAB URINALYSIS - AUTOMATED METHOD 09/12/2024 12:[address] [facility] pH, Urine 8.0 5.0 - 8.0 pH LAB URINALYSIS - AUTOMATED METHOD 09/12/2024 12:[address] [facility] Leukocytes, Urine Trace(A) Negative LAB URINALYSIS - AUTOMATED METHOD 09/12/2024 12:[address] [facility] Nitrite, Urine Negative Negative LAB URINALYSIS - AUTOMATED METHOD 09/12/2024 12:[address] [facility] Protein, Urine 30(A) <=Trace mg/dL LAB URINALYSIS - AUTOMATED METHOD 09/12/2024 12:[address] [facility] Glucose, Urine Negative Negative mg/dL LAB URINALYSIS - AUTOMATED METHOD 09/12/2024 12:[address] [facility] Ketones, Urine Negative Negative mg/dL LAB URINALYSIS - AUTOMATED METHOD 09/12/2024 12:[address] [facility] Urobilinogen, Urine 1.0 0.2 - 1.0 mg/dL LAB URINALYSIS - AUTOMATED METHOD 09/12/2024 12:[address] [facility] Bilirubin, Urine Negative Negative LAB URINALYSIS - AUTOMATED METHOD 09/12/2024 12:[address] [facility] Blood, Urine Negative Negative LAB URINALYSIS - AUTOMATED METHOD 09/12/2024 12:[address] [facility] RBC, Urine 4.6(H) 0 - 4 /HPF LAB URINALYSIS - AUTOMATED METHOD 09/12/2024 12:[address] [facility] WBC, Urine 0.7 0 - 4 /HPF LAB URINALYSIS - AUTOMATED METHOD 09/12/2024 12:[address] [facility] Squamous Epithelial, Urine 17 0 - 60 /LPF LAB URINALYSIS - AUTOMATED METHOD 09/12/2024 12:[address] [facility] Bacteria, Urine Negative Negative /HPF LAB URINALYSIS - AUTOMATED METHOD 09/12/2024 12:[address] [facility] Hyaline Casts, Urine 0.0 0 - 3 /LPF LAB URINALYSIS - AUTOMATED METHOD 09/12/2024 12:[address] [facility] Urine Urine specimen obtained by clean catch procedure / Unknown Non-blood Collection / Unknown 09/11/2024 11:04 PM EDT 09/12/2024 12:27 AM EDT us Yasmine Campos MD LAB URINE ORDERABLES Final Res ult [facility] [address] [place] [address], * Wayne urine culture tube (09/11/2024 11:04 PM EDT) Extra Tube Hold for add-ons. 09/12/2024 2:[address] [facility] Comment:Auto resulted. Urine Urine specimen obtained by clean catch procedure / Unknown Non-blood Collection / Unknown 09/11/2024 11:04 PM EDT 09/12/2024 12:27 AM EDT Yasmine Campos MD LAB URINE ORDERABLES Final Res ult Performing Organization Address [facility]/ZIP Co de Phone Number [facility] [address] [place] [address], [place] [phone] * Culture urine (09/11/2024 11:04 PM EDT) Culture, Urine <10,000 CFU/mL gram positive cocci, insignificant count, no further workup 09/13/2024 10:10 AM EDT [facility] Urine Urine specimen obtained by clean catch procedure / Unknown Non-blood Collection / Unknown 09/11/2024 11:04 PM EDT 09/12/2024 12:35 AM EDT Yasmine Campos MD LAB MICROBIOLOGY - GENERAL ORD ERABLES Final Result Performing Organization Address [facility] de Phone Number [facility] [address] [place] [address], [place] [phone] * CT Abdomen Pelvis wo Contrast (09/11/2024 10:48 PM EDT) Anatomical Region Laterality Modality Body Computed Tomogra phy 09/11/2024 11:3 3 PM EDT Impressions 09/11/2024 11:33 PM EDT 1. No acute intraabdominal or pelvic pathology. This document has been electronically signed by: Frankie Garvin MD on 09/11/2024 23:33:00 Narrative 09/11/2024 11:33 PM EDT INDICATION: Flank pain, kidney stone suspected CT abdomen and pelvis without contrast Comparison: None provided Findings: The lung bases are clear. Unremarkable gallbladder and solid organs. Tiny 2 mm nonobstructing stone in the right kidney. No hydronephrosis. No evidence of obstructing urolithiasis. No evidence of bowel obstruction. Stool-filled colon. Normal appendix. Unremarkable pelvic structures. The bones are intact. Procedure Note Frankie Garvin - 09/11/2024 INDICATION: Flank pain, kidney stone suspected CT abdomen and pelvis without contrast Comparison: None provided Findings: The lung bases are clear. Unremarkable gallbladder and solid organs. Tiny 2 mm nonobstructing stone in the right kidney. No hydronephrosis. No evidence of obstructing urolithiasis. No evidence of bowel obstruction. Stool-filled colon. Normal appendix. Unremarkable pelvic structures. The bones are intact. IMPRESSION: 1. No acute intraabdominal or pelvic pathology. This document has been electronically signed by: Frankie Garvin MD on 09/11/2024 23:33:00 Yasmine Campos MD IMG CT PROCEDURES Final Result * XR Chest 2 Views (09/11/2024 10:19 PM EDT) Anatomical Region Laterality Modality Body Radiographic Corinne ging 09/12/2024 8:12 AM EDT Impressions 09/12/2024 8:13 AM EDT Normal examination. No change since the prior study performed 10/16/2015. Code 90455 -------- FINAL REPORT -------- Dictated By: Garth Cameron Dictated Date: 09/12/2024 08:12 ET Assigned Physician: Garth Cameron Reviewed and Electronically Signed By: Garth Cameron Signed Date: 09/12/2024 08:13 ET Workstation ID: [id number] Transcribed By: Self Edit Transcribed Date: 09/12/2024 08:12 ET Narrative 09/12/2024 8:13 AM EDT HISTORY: The patient is a 54-year-old female with left-sided chest pain. No history of trauma is provided. FINDINGS: PA and lateral radiographs of the chest demonstrate normal appearance of the bony structures. The cardiac and mediastinal contours are within normal limits. The lungs and costophrenic angles are clear. Procedure Note Garth Cameron MD - 09/12/2024 HISTORY: The patient is a 54-year-old female with left-sided chest pain.No history of trauma is provided. FINDINGS: PA and lateral radiographs of the chest demonstrate normalappearance of the bony structures. The cardiac and mediastinal contoursare within normal limits. The lungs and costophrenic angles are clear. IMPRESSION: Normal examination. No change since the prior study performed 10/16/2015. Code 74491 -------- FINAL REPORT -------- Dictated By: Garth Cameron Dictated Date: 09/12/2024 08:12 ET Assigned Physician: Garth Cameron Reviewed and Electronically Signed By: Garth Cameron Signed Date: 09/12/2024 08:13 ET Workstation ID: [id number] Transcribed By: Self Edit Transcribed Date: 09/12/2024 08:12 ET us Chalo Manzano MD IMG XR PROCEDURES Final Result * (ABNORMAL) Lipid panel with reflex to direct LDL (09/11/2024 9:12 PM EDT) Cholesterol 253(H) 0 - 200 mg/dL LAB CHEMISTRY METHOD 09/12/2024 6:[address] [facility] Triglycerides 275(H) 0 - 150 mg/dL LAB CHEMISTRY METHOD 09/12/2024 6:[address] [facility] HDL 56 >=40 mg/dL LAB CHEMISTRY METHOD 09/12/2024 6:[address] [facility] LDL Calculated 142(H) 0 - 100 mg/dL LAB CHEMISTRY METHOD 09/12/2024 6:[address] [facility] VLDL Cholesterol Rajeev 55 mg/dL LAB CHEMISTRY METHOD 09/12/2024 6:[address] [facility] Non HDL Chol. (LDL+VLDL) 197(H) <145 mg/dL LAB CHEMISTRY METHOD 09/12/2024 6:[address] [facility] Chol/HDL Ratio 4.5(H) 0.0 - 4.4 LAB CHEMISTRY METHOD 09/12/2024 6:[address] [facility] Blood Venous blood specimen / Unknown Venipuncture / Unknown 09/11/2024 9:12 PM EDT 09/11/2024 9:47 PM EDT us Essie DAMON LAB BLOOD ORDERABLES Final R esult Performing Organization Address [facility]/ZIP Co de Phone Number [facility] [address] [place] [address], [place] [phone] * Prothrombin Time with INR - STAT (09/11/2024 9:12 PM EDT) [facility] Protime 13.1 10.6 - 13.9 sec LAB COAGULATION METHOD 09/12/2024 4:19 AM EDT [facility] INR 1.0 LAB COAGULATION METHOD 09/12/2024 4:19 AM EDT [facility] Blood Venous blood specimen / Unknown Venipuncture / Unknown 09/11/2024 9:12 PM EDT 09/11/2024 9:47 PM EDT us Yasmine Campos MD LAB BLOOD ORDERABLES Final Res ult Performing Organization Address [facility]/ZIP Co de Phone Number [facility] [address] [place] [address], [place] [phone] * D-dimer, quantitative (09/11/2024 9:12 PM EDT) Pathologist [facility] D-Dimer, Quant (D-DU) <150 <=230 ng/mL DDU LAB COAGULATION METHOD 09/11/2024 10:04 PM EDT [facility] Blood Venous blood specimen / Unknown Venipuncture / Unknown 09/11/2024 9:12 PM EDT 09/11/2024 9:47 PM EDT Narrative [facility] - 09/11/2024 10:04 PM EDT D-Dimer <230 ng/mL (D-Dimer units) is the threshold for exclusion of DVT/PE. D-Dimer may be elevated in: Critically ill, severely infected, trauma patients, DIC, acute CVA, acute ND, unstable angina, AF, old age, , and smoking. D-Dimer may be decreased with: Initiation of heparin therapy and oral anticoagulants. Yasmine Campos MD LAB BLOOD ORDERABLES Final Res ult Performing Organization Address City/[facility]/ZIP Co de Phone Number [facility] [address] [place] [address], [place] [phone] * (ABNORMAL) Creatine kinase and CKMB (09/11/2024 9:12 PM EDT) [facility] Total CK 140 22 - 269 unit/L LAB CHEMISTRY METHOD 09/12/2024 6:14 AM EDT [facility] CK-MB <1.0(L) 1.0 - 3.6 ng/mL LAB CHEMISTRY METHOD 09/12/2024 6:14 AM EDT [facility] CK-MB Index <0.0(L) 0.0 - 5.0 LAB CHEMISTRY METHOD 09/12/2024 6:14 AM EDT [facility] Blood Venous blood specimen / Unknown Venipuncture / Unknown 09/11/2024 9:12 PM EDT 09/11/2024 9:47 PM EDT Chalo Manzano MD LAB BLOOD ORDERABLES Final Res ult Performing Organization Address [facility]/ZIP Co de Phone Number [facility] [address] [place] [address], [place] [phone] * ECG 12 lead (09/11/2024 8:47 PM EDT) [facility] Ventricular Rate ECG 66 BPM GEMUSE Atrial Rate 66 BPM GEMUSE P-R Interval 136 ms GEMUSE QRS Duration 84 ms GEMUSE Q-T Interval 382 ms GEMUSE QTc 400 ms GEMUSE P Wave Shaw 56 degrees GEMUSE R Shaw 22 degrees GEMUSE T Shaw 44 degrees GEMUSE ECG Interpretation Normal sinus rhythm Nonspecific ST abnormality Abnormal ECG No previous ECGs available Confirmed by Patti MUNOZ JAMES ([id number]) on 09/12/2024 2:44:57 PM GEMUSE 09/11/2024 8:47 PM EDT 09/12/2024 2:44 PM EDT us Garth Barrientos MD ECG ORDERABLES Final Result GEMUSE from Last 3 Months Insurance [employer] Advance Directives * Full Code - Default (Latest Code Status on File) Date Activated Date Inactivated Comments 09/12/2024 5:01 AM 09/12/2024 1:59 PM This is orde r is used when code status has not been discussed with the patient, or code status is otherwise unknown/unconfirmed To update the patient's code status, place a code status order. Do not modify or discontinue any currently active code status orders. Care Teams Commercial Field Inspector Relationship Specialty Start Date End Date Karolyn Molina NP [address] [place] [address] PCP - General Nurse Practitioner 09/11/24
--- OUTSIDE RECORDS SUMMARY | 2024-11-28 19:54 | XMS_ITS | Clinical Summary ---
Author Organization Located Within [facility] Address [address] [address] Phone Care Team Providers Care Facilities Plant Engineer Name Role Phone TravisKarolyn dye Lupillo PLASMA PROCESSING TECHNICIAN Primary Care Provider [phone] Allergies Active Allergy Reactions Criticality Noted Date Comments Minocycline Angioedema 08/12/2012 Sulfa (Sulfonamide Antibiotics) Angioedema 07/25 Medications MULTIVITAMIN ORAL Take by mouth. Active cholecalciferol, vitamin D3, (VITAMIN D3 ORAL) Take by mouth. Active BIOTIN ORAL Take by mouth. Active cyanocobalamin, vitamin B-12, (VITAMIN B-12 ORAL) Take by mouth. Active Active Problems Problem Noted Date Diagnosed Date Bilateral knee pain 07/31/2017 Constipation 06/14/1998 Overview (04/15/2014): CONSTIPATION Low back pain 09/10/1994 Overview (04/15/2014): LOW BACK PAIN Family History Medical History Relation Comments No Known Problems Brother Diabetes Father Heart disease Father No Known Problems Maternal Aunt No Known Problems Maternal Grandfather No Known Problems Maternal Grandmother No Known Problems Maternal Uncle Infl. arthritis Mother Osteoporosis Mother No Known Problems Paternal Aunt No Known Problems Paternal Grandfather No Known Problems Paternal Grandmother No Known Problems Paternal Uncle Rheumatoid arthritis Sister 1 No Known Problems Sister 2 No Known Problems Unspecified Cancer Neg Hx Clotting disorder Neg Hx Collagen disease Neg Hx Depression Neg Hx Dislocations Neg Hx Gout Neg Hx Rheumatic fever Neg Hx Scoliosis Neg Hx Relation Status Comments Brother Father Maternal Aunt Maternal Grandfather Maternal Grandmother Maternal Uncle Mother Paternal Aunt Paternal Grandfather Paternal Grandmother Paternal Uncle Sister 1 Sister 2 Unspecified Social History Tobacco Use Types Packs/Day Years Used Date Smoking Tobacco: Never Smokeless Tobacco: Never Alcohol Use Standard Drinks/Week Comments No 0 (1 standard drink = 0.6 oz pur e alcohol) Education Answer Date Recorded Are you interested in more education? Not on uriel e 06/19/2022 Are you concerned about learning? Not on file 06/19/2022 No 06/19/2022 No 06/19/2022 Digital Access Answer Date Recorded No 07/16/2022 No 07/16/2022 No 07/16/2022 Reliable internet access at home? Not on file 07/16/2022 Device with a working camera? Not on file Comments Unknown Sex and Gender Information Value Date Recorded Sex Assigned at Not on file Legal Sex Female 7:43 PM EST Gender Identity Not on file Sexual Orientation Not on file Last Filed Vital Signs Vital Sign Reading Time Taken Comments Blood Pressure - - Pulse - - Temperature - - Respiratory Rate - - Oxygen Saturation - - Inhaled Oxygen Concentration - - Weight 62.6 kg (138 lb) 10/07/2018 12:21 PM EDT Height 152.4 cm (5') 10/07/2018 12:21 PM EDT Body Mass Index 26.95 10/07/2018 12:21 PM EDT Plan of Treatment Health Maintenance Due Date Last Done Comments Adult Td,Tdap Booster 1968 LIPID PANEL 1968 DEPRESSION SCREENING 1980 HIV ONE-TIME SCREENING (18-6 5 YEARS) 1986 PAP SMEAR 10/22/1999 10/21/1996, 09/13/1996, 04/19/1993 MAMMOGRAM 2008 COLOGUARD 2013 COLONOSCOPY 2013 COLORECTAL CANCER SCREENING 2013 FIT TEST 2013 FOBT 2013 SIGMOIDOSCOPY 2013 VIRTUAL COLONOSCOPY 2013 PNEUMOCOCCAL VACCINES (50+ years) (1 of 1 - PCV) 2018 ZOSTER VACCINES (1 of 2) 2018 INFLUENZA VACCINE (#1) 2024 9, 12/11/2017 COVID-19 VACCINE (2024-2 6 season) 2024 04/02/2020, 03/05/2020 RSV VACCINE (1 - 1-dose 75+ series) 2043 HEPATITIS C SCREENING Completed 06/17/1995 SMOKING STATUS SCREENING (On ce After 26 Yrs) Completed 09/23/2019 HEPATITIS A VACCINES Aged Out No long er eligible based on patient's age to complete this topic HIB VACCINES Aged Out No longer eligi ble based on patient's age to complete this topic MENINGOCOCCAL VACCINES (ACWY) Aged Out No longer eligible based on patient's age to complete this topic MENINGOCOCCAL VACCINES (B) Aged Out N o longer eligible based on patient's age to complete this topic Medical Devices Not on file Procedures Procedure Name Priority Date/Time Associated Diagnosis Comments PAP TEST Routine 10/21/1996 12:00 AM EDT from Last 3 Months or Most Recently Relevant to Health Maintenance Results * Pap Smear (10/21/1996 12:00 AM EDT) 10/21/1996 Narrative [facility] - 11/03/1996 2:22 PM EDT Accession Number: [id number] Report Status: Final Type: Cytology Cytology Report [id number] DIAGNOSTIC PAP Accessioned On: 10/22/96 JOSEPH WAN CLINICAL DATA: None given.FINAL CYTOLOGIC DIAGNOSIS: ENDOCERVICAL BRUSH & CERVICAL SCRAPE: Satisfactory for evaluation but limited by the lack of pertinent clinical patient information (LMP) on the requisition form, the absence of an adequate endocervical/transformation zone compone and obscuring inflammation. WITHIN NORMAL LIMITS. Endometrial cells present- The LMP was not provided. Please correlate clinically. us Conversion Provider Not In Sys CYTOLOGY ORDERABL ES Final Result [address] [address] from Last 3 Months or Most Recently Relevant to Health Maintenance Insurance [facility] [employer] [address] [place] [address] [place] [address] [employer] [address] [place] [address] [place] [place] [place] [address] [place] [place] [place] [address] Care Teams Facilities Plant Engineer Relationship Specialty Start Date End Date Karolyn Molina NP PCP - General Family Medicine 07/31/17 Additional Source Comments The information contained in this document represents components of the legal health record. It is not the complete legal health record.Located Within [facility]
[2024-11-28 20:03] VITALS: BP 121/70; PULSE 70; RESP 14; TEMP 36.8; O2SAT 97
[2024-11-28 22:05] LABS: OBS Int Ctl Valid YES; OBS1 NEGATIVE (NEGATIVE)
[2024-11-28 22:21] VITALS: BP 148/80; PULSE 69; RESP 16; TEMP 36.6; O2SAT 97
[2024-11-28] MEDS: iohexoL 350 MG/ML 100 ML INFUS..BTL 85 ML IV (22:33)
[2024-11-29 01:15] VITALS: BP 124/63; PULSE 61; RESP 14; TEMP 36.5; O2SAT 100
[2024-11-29 01:24] VITALS: BP 124/63; PULSE 61; RESP 14; TEMP 36.5; O2SAT 100
== END 2024-11-29 01:30 | disposition home or self-care (01) ==
PROVIDERS: Physician Assistant; Emergency Provider Emergency Medicine; PCP Nurse Practitioner Family
DX: K64.8 Other hemorrhoids (principal); K62.5 Hemorrhage of anus and rectum
CPT/HCPCS: 36415; 74177; 81001; 82272; 84702; 85025; 85610; 85730; 99284; Q9967

== ENCOUNTER → 2024-11-28 22:12 | Outpatient (BNV) | payer OTHER, SELFPAY | PROVIDERS: Emergency Provider Emergency Medicine; PCP Nurse Practitioner Family; Visit Provider Radiology Diagnostic Radiology | DX: K62.5 Hemorrhage of anus and rectum (principal); R10.9 Unspecified abdominal pain | CPT/HCPCS: 74177 ==